=== PATIENT | female | born 1945 | race Caucasian/White ===

== ENCOUNTER → 2017-04-18 | Outpatient (CLI) | payer OTHER | LOC: FIMAGING 15:53 | PROVIDERS: ATTEND Internal Medicine | DX: Z12.31 Encounter for screening mammogram for malignant neoplasm of breast (principal) | CPT/HCPCS: G0202 ==

== ENCOUNTER 2017-11-16 11:00 | Emergency (ER) | payer OTHER ==
--- NOTE | 2017-11-16 11:15 | CPEKG ---
Heart Rate: 55 RR Interval: 1091 P-R Interval: 196 QRSD Interval: 90 QT Interval: 436 QTC Interval: 417 P [place]: 25 QRS [place]: -12 T Wave [place]: 10 EKG Severity - OTHERWISE NORMAL ECG - EKG Impression: SINUS ARRHYTHMIA, RATE 43-68 Electronically Signed By: Higinio Woodward 16-Nov-2017 11:37:04
[2017-11-16] MEDS ORDERED: ASPIRIN 325 MG TAB PO ONE (11:19)
[2017-11-16 11:27] LABS: PLATELET COUNT 210 10^3/uL (150-400)
--- NOTE | 2017-11-16 11:38 | EDPHY ---
H & P Stated Complaint: Chest discomfort, burning Time Seen by Provider: 11/16/17 11:35 HPI/ROS: HPI: This is a 72-year-old female who presents with Chief Complaint: Chest discomfort, burning Location: Mid sternal Quality: Discomfort, burning Duration: Woke up this morning around 5:30 a.m. Signs and Symptoms: no shortness of breath at rest, no shortness of breath on exertion, no cough, + chest pain, no palpitations, no lower extremity edema, no wheezing, no orthopnea, no paroxysmal nocturnal dyspnea, no fever, no injury/ trauma, no hemoptysis, no carpal pedal spasms Timing: Acute, resolving Severity: Moderate Context: Patient reports that she woke up this morning around 5:30 a.m. With anterior chest burning and pressure like intent pain. She reports that the pain then consumed her entire torso it was so severe. She describes the pain as burning. She takes Prilosec as needed for gastroesophageal reflux disease. She did not eat dinner last night and decided at midnight to eat cottage cheese with blueberries and peanut butter. She reports that she is leaving tomorrow for [place] for business and pleasure tripped. She does admit to considerable stress. She reports that her Prilosec was out of date. She took on a acid reducers [id number] and within 1 hr the burning pain had and slowly resolved. She believes that this is related to indigestion. She called her counter roller, Dr. Arboleda, this morning to ask what GERD medications she can be taking and they advised her to go to the emergency room for further evaluation. Chart review shows that in 04/30/2015 she had a left heart catheterization that showed EF of 55% with no significant valve disease, no flow-limiting coronary disease. She reports that she was just seen last week by her counter roller and her lipids were under control. She takes baby aspirin daily along with statin therapy. Patient reports that she did not have any shortness of breath, nausea, vomiting, diaphoresis when the chest discomfort started. Modifying Factors: Prilosec and what seems to be Tums with moderate relief Comment: ROS: see HPI Constitutional: No fever, no chills, no weight loss Eyes: No blurred vision Respiratory: No shortness of breath, no cough Cardiovascular: + chest pain, no palpitations, no lower extremity edema Gastrointestinal: No nausea, no vomiting, no diarrhea Genitourinary: No dysuria Extremities: No myalgias Neurologic: No weakness, no numbness Skin: No rashes Hematologic: No bruising, no bleeding MEDICAL/SURGICAL/SOCIAL HISTORY: Medical history: Foot surgery, abn heart scan, hypothyroid, PACs, GERD, hiatal hernia Surgical history: Denies Social history: Employed. . CONSTITUTIONAL: Extremely pleasant well-appearing adult white female who appears younger than stated age, awake and alert, no obvious distress HEENT: Atraumatic and normocephalic, PERRL, EOMI. Nares patent; no rhinorrhea; no nasal mucosal edema. Tympanic membranes clear. Oropharynx clear, no exudate and moist pink mucosa. Airway patent. No lymphadenopathy. No meningismus. Cardiovascular: Normal S1/S2, regular rate, regular rhythm, without murmur rub or gallop. PULMONARY/CHEST: Symmetrical and nontender. Clear to auscultation bilaterally. Good air movement. No accessory muscle usage. ABDOMEN: Soft, nondistended, nontender, no rebound, no guarding, no peritoneal signs, no masses or organomegaly. No CVAT. EXTREMITIES: 2/2 pulses, strength 5/5, no deformities, no clubbing, no cyanosis or edema. NEUROLOGICAL: no focal neuro deficits. GCS 15. SKIN: Warm and dry, no erythema. no rash. Good capillary refill. Source: Patient, RN/MD, Old records Exam Limitations: No limitations - Personal History Current Tetanus/Diphtheria Vaccine: Yes Current Tetanus Diphtheria and Acellular Pertussis (TDAP): Yes - Medical/Surgical History Hx Asthma: No Hx Chronic Respiratory Disease: No Hx Diabetes: No Hx Cardiac Disease: No Hx Renal Disease: No Hx Cirrhosis: No Hx Alcoholism: No Hx HIV/AIDS: No Hx Splenectomy or Spleen Trauma: No Other PMH: Foot surgery, abn heart scan, hypothyroid, PACs - Social History Smoking Status: Never smoked Constitutional: Initial Vital Signs Heart Rate 56 L 11/16/17 11:10 Respiratory Rate 18 11/16/17 11:10 Blood Pressure 104/80 11/16/17 11:10 O2 Sat (%) 96 11/16/17 11:10 O2 Delivery Mode Room Air Allergies/Adverse Reactions: nitrofurantoin [From Macrobid] Allergy (Verified 10/09/15 09:51) nitrofurantoin macrocrystalline [From Macrobid] Allergy (Verified 04/18/15 09:51 ) Home Medications: Medication Instructions Recorded SYNTHROID 0.175 mg PO DAILY 04/20/09 Pantoprazole Sodium [Protonix 40mg 40 mg PO BID #60 tab 11/16/17 (*)] Pravastatin Sodium 11/16/17 Medical Decision Making - Diagnostics Imaging Results: Imaging Impressions Chest X-Ray 11/16/17 11:20 Impression: No acute pulmonary disease. ED Course/Re-evaluation: Chest x-ray, EKG, labs, IV and oral medications ordered Etiology is likely related to her hiatal hernia and GERD given the resolution of symptoms with H2 sammy and acid youth care specialist coupled with normal catheterization approximately 2 years ago. 1156: Given GI cocktail and IV Protonix 80 mg EKG per attending shows no acute ischemia, arrhythmia. + PVCs. Chest x-ray my read shows no opacity, no effusion, no widened mediastinum, no pneumothorax. 1310: Spoke with Dr. Arboleda regarding EKG showed no acute ischemic changes; negative troponin. He recommends 30 day supply of PPI; Protonix 40 mg twice daily times 30 days prescription given. 1315: Reassessed patient. Discussed conversation with Dr. Arboleda. Patient is currently pain-free. This patient was seen under the supervision of my secondary supervising physician. I evaluated care for this patient independently. Discussed this patient with Dr. Woodward who did not see the patient. Differential Diagnosis: Chest pain including but not limited to myocardial ischemia, pulmonary embolus, chest wall pain, pleural inflammation and pulmonary infectious causes. - Data Points Laboratory Results: Laboratory Results 11/16/17 11:18 11/16/17 11:18 11/16/17 11/16/17 11:18 11:18 WBC 4.72 10^3/uL 10^3/uL (3.80-9.50) RBC 4.00 10^6/uL L 10^6/uL (4.18-5.33) Hgb 12.5 g/dL L g/dL (12.6-16.3) Hct 37.4 % L % (38.0-47.0) MCV 93.5 fL fL (81.5-99.8) MCH 31.3 pg pg (27.9-34.1) MCHC 33.4 g/dL g/dL (32.4-36.7) RDW 12.2 % % (11.5-15.2) Plt Count 210 10^3/uL 10^3/uL (150-400) MPV 9.8 fL fL (8.7-11.7) Neut % (Auto) 51.8 % % (39.3-74.2) Lymph % (Auto) 36.9 % % (15.0-45.0) [place] % (Auto) 8.3 % % (4.5-13.0) Eos % (Auto) 1.5 % % (0.6-7.6) Baso % (Auto) 1.3 % % (0.3-1.7) Nucleat RBC Rel Count 0.0 % % (0.0-0.2) Absolute Neuts (auto) 2.45 10^3/uL 10^3/uL (1.70-6.50) Absolute Lymphs (auto) 1.74 10^3/uL 10^3/uL (1.00-3.00) Absolute Monos (auto) 0.39 10^3/uL 10^3/uL (0.30-0.80) Absolute Eos (auto) 0.07 10^3/uL 10^3/uL (0.03-0.40) Absolute Basos (auto) 0.06 10^3/uL 10^3/uL (0.02-0.10) Absolute Nucleated RBC 0.00 10^3/uL 10^3/uL (0-0.01) Immature Gran % 0.2 % % (0.0-1.1) Immature Gran # 0.01 10^3/uL 10^3/uL (0.00-0.10) Sodium 142 mEq/L mEq/L (135-145) Potassium 4.2 mEq/L mEq/L (3.5-5.2) Chloride 105 mEq/L mEq/L (97-110) Carbon Dioxide 25 mEq/l mEq/l (22-31) Anion Gap 12 mEq/L mEq/L (8-16) BUN 20 mg/dL mg/dL (7-23) Creatinine 0.7 mg/dL mg/dL (0.6-1.0) Estimated GFR > 60 Glucose 85 mg/dL mg/dL (70-100) Calcium 9.3 mg/dL mg/dL (8.5-10.4) Troponin I < 0.012 ng/mL ng/mL (0.000-0.034) Medications Given: Discontinued Medications Al Hydroxide/Mg Hydroxide (Maalox Susp) 30 ml PO ONCE ONE Stop: 11/16/17 11:50 Last Admin: 11/16/17 12:13 Dose: 30 ml Aspirin (Aspirin) 325 mg PO EDNOW ONE Stop: 11/16/17 11:20 Last Admin: 11/16/17 11:24 Dose: 325 mg Hyoscyamine Sulfate (Levsin, Hyomax-Sl) 0.25 mg PO ONCE ONE Stop: 11/16/17 11:50 Last Admin: 11/16/17 12:11 Dose: 0.25 mg Lidocaine (Lidocaine 2% Viscous) 15 ml PO ONCE ONE Stop: 11/16/17 11:50 Last Admin: 11/16/17 12:12 Dose: 15 ml Pantoprazole Sodium (Protonix) 80 mg IVP EDNOW ONE Stop: 11/16/17 11:51 Last Admin: 11/16/17 12:14 Dose: 80 mg Departure - Departure Disposition: Home, Routine, Self-Care Clinical Impression: Atypical chest pain GERD (gastroesophageal reflux disease) Qualifiers: Esophagitis presence: esophagitis presence not specified Qualified Code(s): K21.9 - Gastro-esophageal reflux disease without esophagitis Condition: Good Instructions: Diet for Stomach Ulcers and Gastritis (ED), Gastroesophageal Reflux Disease (ED) Additional Instructions: Avoid spicy, fried foods, large meals, citrus. Keep upright approximately 4-6 hours prior to lying down after eating meals. Take Protonix twice daily for the next 30 days and then once daily thereafter. Referrals: Divine Sellers MD [Primary Care Provider] - As per Instructions Bon Arboleda MD [Medical Doctor] - As per Instructions Prescriptions: Pantoprazole Sodium [Protonix 40mg (*)] 40 mg PO BID #60 tab
[2017-11-16] MEDS ORDERED: MAG HYDROX/AL HYDROX/SIMETH 30 ML UDCUP PO ONE (11:49)
[2017-11-16] MEDS ORDERED: HYOSCYAMINE SULFATE 0.125 MG TAB PO ONE (11:49)
[2017-11-16] MEDS ORDERED: LIDOCAINE 2% VISCOUS 15 ML UDCUP PO ONE (11:49)
[2017-11-16] MEDS ORDERED: PANTOPRAZOLE SODIUM 40 MG VIAL IVP ONE (11:50)
[2017-11-16 13:06] VITALS: BP 103/74
== END 2017-11-16 13:27 | disposition home or self-care (01) ==
DX: K21.9 Gastro-esophageal reflux disease without esophagitis (principal)
CPT/HCPCS: 96374

== ENCOUNTER → 2018-04-19 | Outpatient (CLI) | payer OTHER | LOC: FIMAGING 12:13 | PROVIDERS: ATTEND Internal Medicine | DX: Z12.31 Encounter for screening mammogram for malignant neoplasm of breast (principal) ==